=== PATIENT | female | born 1975 | race Caucasian/White ===

== ENCOUNTER 2023-02-04 14:40 | Emergency (ER) | payer MEDICAID, OTHER ==
[~2023-02-04] VITALS: Ht 154.9 cm; Wt 63.7 kg
[2023-02-04 14:43] VITALS: BP 184/97; RESP 18; O2SAT 100
[2023-02-04 15:28] LABS: Basophils # (auto) 0.1 10 ^3/uL (0-0.2); Basophils % (auto) 1.3 % (0.0-2.0); Eosinophils # (auto) 0.1 10 ^3/uL (0-0.8); Eosinophils % (auto) 2.4 % (0.0-7.0); Hematocrit 27.8 % (36.0-46.0); Lymphocytes # (auto) 0.9 10 ^3/uL (0.4-5.4); Lymphocytes % (auto) 19.9 % (10.0-50.0); Mean Corpuscular Hemoglobin 17.6 pg (28.0-32.0); Mean Corpuscular Volume 60.7 fL (80.0-100.0); Monocytes # (auto) 0.4 10 ^3/uL (0-1.3); Monocytes % (auto) 9.4 % (0.0-12.0); Red Blood Cells 4.57 10^6/uL (4.0-5.20); Red Cell Distribution Width 17.4 % (11.8-14.3); White Blood Cell 4.5 10^3/uL (4.4-10.8)
[2023-02-04 15:42] LABS: Alanine Aminotransferase 12 U/L (7-40); Alkaline Phosphatase 143 U/L (46-116)
[2023-02-04 15:43] LABS: Albumin 4.5 g/dL (3.2-4.8); Anion Gap 6 (5-15); Aspartate Aminotransferase 19 U/L (13-40); Bilirubin, Total 0.4 mg/dL (0.2-1.0); Calcium 9.4 mg/dL (8.7-10.4); Carbon Dioxide 27 mmol/L (20-30); Chloride 105 mmol/L (98-107); Glucose 96 mg/dL (74-106); Potassium 3.2 mmol/L (3.5-5.1); Sodium 138 mmol/L (136-145); Total Protein 6.8 g/dL (5.7-8.2)
[2023-02-04 16:08] VITALS: PULSE 71
[2023-02-04] MEDS ORDERED: SODIUM CHLORIDE 0.9% 1,000 ML IVB ONE (16:15)
[2023-02-04] MEDS ORDERED: POTASSIUM EFFERVESENT TAB 25 MEQ PO ONE (16:15)
[2023-02-04] MEDS ORDERED: HYDROcodone-ACET 10/325MG TAB PO ONE (16:30)
[2023-02-04 16:49] LABS: BUN/Creatinine Ratio 16.1 (10.0-20.0); Blood Urea Nitrogen 10 mg/dL (9-23)
[2023-02-04 19:08] LABS: Anisocytosis Slight; Hypochromia Marked; Platelet Estimate Adequate
== END 2023-02-04 17:37 | disposition home or self-care (01) ==
LOC: ER 14:40
DX: E87.6 Hypokalemia (principal); R07.89 Other chest pain; Z90.89 Acquired absence of other organs; Z98.890 Other specified postprocedural states
CPT/HCPCS: 36415; 80053; 84484; 85025; 93005